=== PATIENT | male | born 1975 | race Caucasian/White ===

== ENCOUNTER 2016-12-21 13:03 | Emergency (ER) | payer OTHER ==
[2016-12-21 15:08] VITALS: BP 123/65
[2016-12-21] MEDS ORDERED: Ketorolac 60 MG/2 ML SDV IM ONE (16:50)
--- NOTE | 2016-12-21 16:51 | EDM.PDOC ---
ED HPI GENERAL MEDICAL PROBLEM - General Chief Complaint: Upper Extremity Injury/Pain Stated Complaint: RIGHT ARM PAIN Time Seen by Provider: 12/21/16 16:03 - History of Present Illness INITIAL COMMENTS - FREE TEXT/NARRATIVE: History of present illness: []Patient has chronic right arm pain and has had a blood clot in this arm in the past. He was using air hammer today and he developed numbness in his hands and pain in his arm. Review of systems: As per history of present illness and below otherwise all systems reviewed and negative. Past medical history: As per history of present illness and as reviewed below otherwise noncontributory. Surgical history: As per history of present illness and as reviewed below otherwise noncontributory. Social history: No reported history of drug or alcohol abuse. Family history: As per history of present illness and as reviewed below otherwise noncontributory. Physical exam: General: Well developed, well nourished in NAD HEENT: Atraumatic, normocephalic, pupils reactive, negative for conjunctival pallor or scleral icterus, mucous membranes moist, throat clear, neck supple, nontender, trachea midline. Lungs: Clear to auscultation, breath sounds equal bilaterally, chest nontender. Heart: S1S2, regular, negative for clicks, rubs, or JVD. Abdomen: Soft, nondistended, nontender. Negative for masses or hepatosplenomegaly. Negative for costovertebral tenderness. Pelvis: Stable nontender. Genitourinary: Deferred. Rectal: Deferred. Extremities: Atraumatic, negative for cords or calf pain. Neurovascular unremarkable. Neuro: Awake, alert, oriented. Cranial nerves II through XII unremarkable. Cerebellum unremarkable. Motor and sensory unremarkable throughout. Exam nonfocal. Diagnostics: [] Therapeutics: [] Impression: [] Plan: [] Definitive disposition and diagnosis as appropriate pending reevaluation and review of above. right shoulder Pain Score (Numeric/FACES): 8 - Related Data Allergies Allergy/AdvReac Type Severity Reaction Status Date / Time No Known Allergies Allergy Verified 12/21/16 15:03 Home Meds: Home Meds Diclofenac Sodium [Diclofenac Sodium ER] 100 mg PO DAILY PRN #20 tab.sr.24h [Rx] Past Medical History - Past Health History Medical/Surgical History: Denies Medical/Surgical History - Past Surgical History GI Surgical History: Reports: Appendectomy, Other (See Below) Other GI Surgeries/Procedures: gastric sx Social & Family History - Family History Family Medical History: Noncontributory - Tobacco Use Smoking Status *Q: Current Every Day Smoker Years of Tobacco use: 25 Packs/Tins Daily: 1 - Recreational Drug Use Recreational Drug Use: No Review of Systems - Review of Systems Review Of Systems: See Below (See history of present illness) ED EXAM, GENERAL - Physical Exam Exam: See Below Course - Vital Signs Last Recorded V/S: Last Vital Signs Temp 36.6 C 12/21/16 13:10 Pulse 58 L 12/21/16 13:10 Resp 18 12/21/16 13:10 BP 123/65 12/21/16 13:10 Pulse Ox - Orders/Labs/Meds Labs: Laboratory Tests 12/21/16 Range/Units 16:57 D-Dimer, Quantitative 0.28 (0.0-0.52) mg/LFEU Meds: Medications Discontinued Medications Generic Name Dose Route Start Last Admin Trade Name Freq PRN Reason Stop Dose Admin Ketorolac Tromethamine 60 mg 12/21/16 16:50 12/21/16 17:03 Toradol IM 12/21/16 16:51 60 mg ONETIME ONE Administration Departure - Departure Time of Disposition: 17:29 Disposition: Home, Self-Care 01 Condition: Good Clinical Impression: Neurapraxia of right upper extremity Qualifiers: Encounter type: initial encounter Qualified Code(s): S44.91XA - Injury of unspecified nerve at shoulder and upper arm level, right arm, initial encounter - Discharge Information Prescriptions: Diclofenac Sodium [Diclofenac Sodium ER] 100 mg PO DAILY PRN #20 tab.sr.24h PRN Reason: Pain Referrals: PCP,None [Primary Care Provider] - Forms: ED Department Discharge Additional Instructions: The following information is given to patients seen in the emergency department who are being discharged to home. This information is to outline your options for follow-up care. We provide all patients seen in our emergency department with a follow-up referral. The need for follow-up, as well as the timing and circumstances, are variable depending upon the specifics of your emergency department visit. If you don't have a primary care physician on staff, we will provide you with a referral. We always advise you to contact your personal physician following an emergency department visit to inform them of the circumstance of the visit and for follow-up with them and/or the need for any referrals to a consulting specialist. The emergency department will also refer you to a specialist when appropriate. This referral assures that you have the opportunity for follow-up care with a specialist. All of these measure are taken in an effort to provide you with optimal care, which includes your follow-up. Under all circumstances we always encourage you to contact your private physician who remains a resource for coordinating your care. When calling for follow-up care, please make the office aware that this follow-up is from your recent emergency room visit. If for any reason you are refused follow-up, please contact the [facility] Emergency Department at and asked to speak to the emergency department charge nurse. Ice, diclofenac for inflammation, rest right arm as much as possible. Follow-up with PMD return if symptoms worsen or change [facility] [place] [id number]
== END 2016-12-21 17:42 | disposition home or self-care (01) ==
LOC: MW.ED 13:03
DX: S44.91XA Injury of unspecified nerve at shoulder and upper arm level, right arm, initial encounter (principal); F17.210 Nicotine dependence, cigarettes, uncomplicated; Z90.49 Acquired absence of other specified parts of digestive tract; X58.XXXA Exposure to other specified factors, initial encounter
CPT/HCPCS: 36415; 85379; 96372; 99283; A4566; J1885

== ENCOUNTER 2021-02-25 12:11 | Emergency (ER) | payer BC ==
[2021-02-25] MEDS ORDERED: Ondansetron 4 MG/2 ML SDV IVPUSH ONE (13:03)
[2021-02-25] MEDS ORDERED: Sodium Chloride 0.9% 10 ML Syringe FLUSH PRN (13:03)
[2021-02-25] MEDS ORDERED: Sodium Chloride 0.9% 2.5 ML Syringe FLUSH PRN (13:03)
[2021-02-25] MEDS ORDERED: Pantoprazole 40 MG in Sodium Chloride 0.9% 10 ML IV ONE (13:03)
[2021-02-25 14:02] LABS: BLOOD UREA NITROGEN,BUN 5 mg/dL (7.0-18.0); CARBON DIOXIDE,CO2 23.8 mmol/L (21.0-32.0); CHLORIDE,CL 102 mmol/L (98-107); GLUCOSE RANDOM 106 mg/dL (74-106); LIPASE 76 U/L (73-393); SODIUM,NA 139 mmol/L (136-148)
[2021-02-25] MEDS ORDERED: Alum Hydrox/Mag Hydrox/Simeth 15 ML, Metoclopramide 5 MG, Lidocaine 2% 5 ML PO ONE ×3 (14:08)
--- NOTE | 2021-02-25 14:33 | EDM.PDOC ---
ED HPI GENERAL MEDICAL PROBLEM - General Chief Complaint: Gastrointestinal Problem Stated Complaint: STOMACH PAIN Time Seen by Provider: 02/25/21 12:15 - History of Present Illness INITIAL COMMENTS - FREE TEXT/NARRATIVE: History of present illness: [] Patient is epigastric pain. He said pain and nausea for 2 days. The patient 2 weeks ago had finished course of steroids. He had not been on steroids in the past. He also took ibuprofen today. The patient has a history of Nilam-en-Y gastrectomy with gastric bypass. That was done 5 years ago in [place] and he had complications both with surgery and then with DVT in the arm where the IV was. The patient had a difficult recovery. Now he lives in [facility]. The patient is not on a PPI or H2 jeana. The pain is constant and severe associated with nausea. At times it is worse with food at times its not. He has no black stool. The patient smokes cigarettes and does not drink alcohol. Review of systems: As per history of present illness and below otherwise all systems reviewed and negative. Past medical history: As per history of present illness and as reviewed below otherwise noncontributory. Surgical history: As per history of present illness and as reviewed below otherwise noncontributory. Social history: No reported history of drug or alcohol abuse. Family history: As per history of present illness and as reviewed below otherwise noncontributory. Physical exam: Constitutional - well developed, well-nourished and in no acute distress HEENT - normocephalic, no evidence of trauma - external nose and mouth normal - no mass in neck and no JVD - mucosae moist EYES - full EOM, PERRL, no icterus - no evidence of inflammation, injection, or drainage Respiratory - no respiratory distress, equal bilateral expansion, lungs clear to auscultation and no abnormal lung sounds Cardiovascular - Regular Rhythm with S1 and S2 appreciated and no murmur, gallop or rub. GI -tenderness isolated to the epigastrium. Abdomen soft without distension or organomegaly - normal bowel sounds - no guard or rebound Musculoskeletal no gross deformity of long bones or joints - no tenderness, swelling or edema Neurologic - Alert and oriented times four - CN II-XII grossly intact - motor sensory and coordination symmetrically normal Psychiatric - appropriate mood and affect with normal thought content Hematologic - No petechiae or purpura - mucosa appropriate color and sclera not pale - normal nail bed color and refill Integument - no rash or evidence of trauma - normal turgor Diagnostics: [] Therapeutics: [] Impression: [] Plan: [] Definitive disposition and diagnosis as appropriate pending reevaluation and review of above. Abdomen Pain Score (Numeric/FACES): 9 - Related Data Allergies Allergy/AdvReac Type Severity Reaction Status Date / Time No Known Allergies Allergy Verified 02/25/21 12:49 Home Meds: Home Meds Diclofenac Sodium [Diclofenac Sodium ER] 100 mg PO DAILY PRN #20 tab.sr.24h 12/21/16 [Rx] Omeprazole 40 mg PO DAILY 90 Days #90 capsule. 02/25/21 [Rx] Past Medical History - Past Health History Medical/Surgical History: Denies Medical/Surgical History - Past Surgical History GI Surgical History: Reports: Appendectomy, Other (See Below) Other GI Surgeries/Procedures: gastric sx Social & Family History - Family History Family Medical History: No Pertinent Family History - Tobacco Use Second Hand Smoke Exposure: No - Caffeine Use Caffeine Use: Reports: None - Recreational Drug Use Recreational Drug Use: No ED ROS GENERAL - Review of Systems Review Of Systems: Comprehensive ROS is negative, except as noted in HPI. ED EXAM, GENERAL - Physical Exam Exam: See Below Free Text/Narrative:: My physical exam is in the HPI Course - Vital Signs Last Recorded V/S: Last Vital Signs Temp 37.3 C 02/25/21 12:47 Pulse 71 02/25/21 12:47 Resp 20 02/25/21 12:47 BP 113/71 02/25/21 12:47 Pulse Ox 99 02/25/21 12:47 - Orders/Labs/Meds Orders: Active Orders 24 hr Category Date Time Status Sodium Chloride 0.9% [Saline Flush] Med 02/25/21 13:03 Active 10 ml FLUSH ASDIRECTED PRN Sodium Chloride 0.9% [Saline Flush] Med 02/25/21 13:03 Active 2.5 ml FLUSH ASDIRECTED PRN Saline Lock Insert [OM.PC] Stat Oth 02/25/21 13:03 Ordered Medication Orders Sodium Chloride (Sodium Chloride 0.9% 10 Ml Syringe) 10 ml FLUSH ASDIRECTED PRN PRN Reason: Keep Vein Open Last Admin: 02/25/21 13:35 Dose: 10 ml Documented by: [id number] Sodium Chloride (Sodium Chloride 0.9% 2.5 Ml Syringe) 2.5 ml FLUSH ASDIRECTED PRN PRN Reason: Keep Vein Open Last Admin: 02/25/21 13:35 Dose: 2.5 ml Documented by: [id number] Labs: Laboratory Tests 02/25/21 02/25/21 Range/Units 13:30 13:30 WBC 8.76 (4.0-11.0) K/uL RBC 5.20 (4.50-5.90) M/uL Hgb 14.2 (13.0-17.0) g/dL Hct 42.1 (38.0-50.0) % MCV 81.0 (80.0-98.0) fL MCH 27.3 (27.0-32.0) pg MCHC 33.7 (31.0-37.0) g/dL RDW Std Deviation 51.9 (28.0-62.0) fl RDW Coeff of Christian 18 H (11.0-15.0) % Plt Count 181 (150-400) K/uL MPV 10.10 (7.40-12.00) fL Neut % (Auto) 70.2 (48.0-80.0) % Lymph % (Auto) 17.8 (16.0-40.0) % [place] % (Auto) 9.9 (0.0-15.0) % Eos % (Auto) 1.9 (0.0-7.0) % Baso % (Auto) 0.2 (0.0-1.5) % Neut # (Auto) 6.1 H (1.4-5.7) K/uL Lymph # (Auto) 1.6 (0.6-2.4) K/uL Huntington # (Auto) 0.9 H (0.0-0.8) K/uL Eos # (Auto) 0.2 (0.0-0.7) K/uL Baso # (Auto) 0.0 (0.0-0.1) K/uL Nucleated RBC % 0.0 /100WBC Nucleated RBCs # 0 K/uL Sodium 139 (136-148) mmol/L Potassium 4.0 (3.5-5.1) mmol/L Chloride 102 (98-107) mmol/L Carbon Dioxide 23.8 (21.0-32.0) mmol/L BUN 5 L (7.0-18.0) mg/dL Creatinine 1.1 (0.8-1.3) mg/dL Est Cr Clr Drug Dosing 87.56 mL/min Estimated GFR (MDRD) > 60.0 ml/min Glucose 106 (74-106) mg/dL Calcium 8.4 L (8.5-10.1) mg/dL Total Bilirubin 0.5 (0.2-1.0) mg/dL AST 17 (15-37) IU/L ALT 21 (14-63) IU/L Alkaline Phosphatase 58 (46-116) U/L Total Protein 7.3 (6.4-8.2) g/dL Albumin 3.4 (3.4-5.0) g/dL Globulin 3.9 (2.6-4.0) g/dL Albumin/Globulin Ratio 0.9 (0.9-1.6) Lipase 76 (73-393) U/L Meds: Medications Generic Name Dose Route Start Last Admin Trade Name Jerryq PRN Reason Stop Dose Admin Sodium Chloride 10 ml 02/25/21 13:03 02/25/21 13:35 Sodium Chloride 0.9% 10 Ml Syringe FLUSH 10 ml ASDIRECTED PRN Administration Keep Vein Open Sodium Chloride 2.5 ml 02/25/21 13:03 02/25/21 13:35 Sodium Chloride 0.9% 2.5 Ml Syringe FLUSH 2.5 ml ASDIRECTED PRN Administration Keep Vein Open Discontinued Medications Generic Name Dose Route Start Last Admin Trade Name Sherri PRN Reason Stop Dose Admin Al Hydroxide/Mg Hydroxide 15 0 ml 02/25/21 14:08 02/25/21 14:33 ml/ Metoclopramide HCl 5 mg/ PO 02/25/21 14:09 1 each Lidocaine HCl 5 ml ONETIME ONE Administration Pantoprazole Sodium 40 mg/ 10 mls @ 300 mls/hr 02/25/21 13:03 02/25/21 13:40 Sodium Chloride IV 02/25/21 13:04 300 mls/hr NOW ONE Administration Ondansetron HCl 4 mg 02/25/21 13:03 02/25/21 13:31 Ondansetron 4 Mg/2 Ml Sdv IVPUSH 02/25/21 13:04 4 mg ONETIME ONE Administration Departure - Departure Time of Disposition: 14:52 Disposition: Home, Self-Care 01 Condition: Good Clinical Impression: Acute gastritis - Discharge Information Instructions: Gastritis, Adult, [id number] Referrals: Phoebe Dove, RITA [Primary Care Provider] - Forms: ED Department Discharge Additional Instructions: I checked with the surgeon Dr. Parks who said she is peripherally happy to do endoscopy on somebody after Nilam-en-Y procedure. She also said that it should be pointed out that Nilam-en-Y procedures have a high incidence of ulcer and even perforation in smokers. She suggested you stop smoking. The hospital can provide resources to help if you decide you want to do this. Start the medication advised. This is [id number] medication but I sent a prescription in case your insurance plan covers it if prescribed. It is pantoprazole and the pharmacist can recommend which proton pump inhibitor type medicine for stomach acid is most likely to be affordable for you and whether the nzqi-bhg-[id number] the prescription kind would be better. Graph you can carry Tums and antacids such as Maalox to use for any acute sudden pain. If you have acute sudden pain in its not responding to the medications you need to return so that we can make sure he did not have a perforation of an ulcer. [facility] - General Surgery [address], [address] [place] [address] The following information is given to patients seen in the emergency department who are being discharged to home. This information is to outline your options for follow-up care. We provide all patients seen in our emergency department with a follow-up referral. The need for follow-up, as well as the timing and circumstances, are variable depending upon the specifics of your emergency department visit. If you don't have a primary care physician on staff, we will provide you with a referral. We always advise you to contact your personal physician following an emergency department visit to inform them of the circumstance of the visit and f or follow-up with them and/or the need for any referrals to a consulting specialist. The emergency department will also refer you to a specialist when appropriate. This referral assures that you have the opportunity for follow-up care with a specialist. All of these measure are taken in an effort to provide you with optimal care, which includes your follow-up. Under all circumstances we always encourage you to contact your private physician who remains a resource for coordinating your care. When calling for follow-up care, please make the office aware that this follow-up is from your recent emergency room visit. If for any reason you are refused follow-up, please contact the [facility] Emergency Department at and asked to speak to the emergency department charge nurse. Sepsis Event Note (ED) - Evaluation Sepsis Screening Result: No Definite Risk - Focused Exam Vital Signs: Vital Signs Temp Pulse Resp BP Pulse Ox 02/25/21 12:47 37.3 C 71 20 113/71 99 - My Orders Last 24 Hours: My Active Orders 02/25/21 13:03 Sodium Chloride 0.9% [Saline Flush] 10 ml FLUSH ASDIRECTED PRN Sodium Chloride 0.9% [Saline Flush] 2.5 ml FLUSH ASDIRECTED PRN Saline Lock Insert [OM.PC] Stat - Assessment/Plan Last 24 Hours: My Active Orders 02/25/21 13:03 Sodium Chloride 0.9% [Saline Flush] 10 ml FLUSH ASDIRECTED PRN Sodium Chloride 0.9% [Saline Flush] 2.5 ml FLUSH ASDIRECTED PRN Saline Lock Insert [OM.PC] Stat
[2021-02-25 16:53] VITALS: BP 117/60; PULSE 82
== END 2021-02-25 15:21 | disposition home or self-care (01) ==
LOC: MW.ED 12:11
DX: K29.00 Acute gastritis without bleeding (principal); F17.210 Nicotine dependence, cigarettes, uncomplicated
CPT/HCPCS: 36415; 80053; 83690; 85025; 96374; 96375; 99284; A9270; C9113; J2405

== ENCOUNTER 2021-03-06 10:12 | Day surgery (SDC) | payer BC ==
[~2021-03-06 10:12] MED LIST: Lactated Ringers 1,000 ML IV SCH; Sodium Chloride 0.9% 10 ML SDV IV PRN; Sodium Chloride 0.9% 10 ML Syringe FLUSH PRN; Sodium Chloride 0.9% 2.5 ML Syringe FLUSH PRN
--- NOTE | 2021-03-06 11:04 | PCM.PREANE ---
Preanesthetic Assessment - Procedure Proposed Procedure: EGD, Colonoscopy - Anesthesia/Transfusion/Family Hx Anesthesia History: Prior Anesthesia Without Reaction Family History of Anesthesia Reaction: No Transfusion History: No Prior Transfusion(s) - Review of Systems General: No Symptoms Pulmonary: No Symptoms (Smokes 2 PPD, Emphesema) Cardiovascular: No Symptoms Gastrointestinal: No Symptoms (h/o gastric bypass, on omeprazole for gastritis) Neurological: No Symptoms Other: Reports: None (h/o Kidney stones) - Physical Assessment NPO Status Date: 03/05/21 NPO Status Time: 08:00 (Solids, >3Hr Liq) Vital Signs: Last Vital Signs Temp 97.5 F 03/06/21 10:42 Pulse 72 03/06/21 10:42 Resp 16 03/06/21 10:42 BP 118/56 L 03/06/21 10:42 Pulse Ox 98 03/06/21 10:42 Height: 5 ft 11 in Weight: 92.079 kg ASA Class: 3 Mental Status: Alert & Oriented x3 Airway Class: Mallampati = 2 Dentition: Reports: Dentures (Full) Thyro-Mental Finger Breadths: 3 Mouth Opening Finger Breadths: 3 ROM/Head Extension: Full Lungs: Normal Respiratory Effort, Rales (Bilateral) Cardiovascular: Regular Rate, Regular Rhythm - Allergies Allergies/Adverse Reactions: Allergies Allergy/AdvReac Type Severity Reaction Status Date / Time No Known Allergies Allergy Verified 03/01/21 11:52 - Acknowledgements Anesthesia Type Planned: General Anesthesia Pt an Appropriate Candidate for the Planned Anesthesia: Yes Alternatives and Risks of Anesthesia Discussed w Pt/Guardian: Yes Pt/Guardian Understands and Agrees with Anesthesia Plan: Yes PreAnesthesia Questionnaire - Past Health History Medical/Surgical History: Denies Medical/Surgical History HEENT History: Reports: Other (See Below) Other HEENT History: wears glasses, top and bottom dentures Cardiovascular History: Reports: Blood Clots/VTE/DVT Other Cardiovascular History: hx DVT to right arm following PICC line placement Respiratory History: Reports: None Gastrointestinal History: Reports: Other (See Below) Other Gastrointestinal History: epigastric pain Genitourinary History: Reports: None Musculoskeletal History: Reports: Fracture Other Musculoskeletal History: hx fx arms Neurological History: Reports: None Psychiatric History: Reports: None Endocrine/Metabolic History: Reports: None Hematologic History: Reports: None Immunologic History: Reports: None Oncologic (Cancer) History: Reports: None Dermatologic History: Reports: None - Past Surgical History Head Surgeries/Procedures: Reports: None HEENT Surgical History: Reports: None Cardiovascular Surgical History: Reports: None Respiratory Surgical History: Reports: None GI Surgical History: Reports: Appendectomy, Other (See Below) Other GI Surgeries/Procedures: gastric sx Male Surgical History: Reports: None Endocrine Surgical History: Reports: None Neurological Surgical History: Reports: None Musculoskeletal Surgical History: Reports: None Oncologic Surgical History: Reports: None Dermatological Surgical History: Reports: None - SUBSTANCE USE Tobacco Use Status *Q: Heavy Tobacco User Tobacco Use Within Last Twelve Months: No, Cigarettes Days Per Week of Alcohol Use: 7 Number of Drinks Per Day: 1 Total Drinks Per Week: 7 - HOME MEDS Home Medications: Home Meds Omeprazole 40 mg PO DAILY 90 Days #90 capsule. 02/25/21 [Rx] Aspirin [Adult Aspirin Regimen] 81 mg PO DAILY 03/01/21 [History] Cyanocobalamin (Vitamin B-12) [Cyanocobalamin Injection] 1 injection IM ASDIRECTED 03/01/21 [History] Gabapentin [Neurontin] 300 mg PO BEDTIME 03/01/21 [History] Multivitamin 1 tab PO DAILY 03/01/21 [History] - CURRENT (IN HOUSE) MEDS Current Meds: Current Medications Lactated Ringer's (Ringers, Lactated) 1,000 mls @ 125 mls/hr IV ASDIRECTED ROLANDO Last Admin: 03/06/21 10:47 Dose: 125 mls/hr Documented by: Sodium Chloride (Sodium Chloride 0.9% 10 Ml Syringe) 10 ml FLUSH ASDIRECTED PRN PRN Reason: Keep Vein Open Sodium Chloride (Sodium Chloride 0.9% 2.5 Ml Syringe) 2.5 ml FLUSH ASDIRECTED PRN PRN Reason: Keep Vein Open Sodium Chloride (Sodium Chloride 0.9% 10 Ml Syringe) 10 ml FLUSH ASDIRECTED PRN PRN Reason: Keep Vein Open Sodium Chloride (Sodium Chloride 0.9% 2.5 Ml Syringe) 2.5 ml FLUSH ASDIRECTED PRN PRN Reason: Keep Vein Open Sodium Chloride (Sodium Chloride 0.9% 10 Ml Sdv) 10 ml IV ASDIRECTED PRN PRN Reason: IV Use
[2021-03-06] MEDS ORDERED: Propofol 200 MG/20 ML SDV ONE ×2 (12:15→13:20)
[2021-03-06] MEDS ORDERED: Glycopyrrolate 0.2 MG/ML SDV ONE (12:16)
[2021-03-06] MEDS ORDERED: Lidocaine 2% 5 ML SDV ONE (12:16)
[2021-03-06] MEDS ORDERED: Midazolam 1 MG/ML 2 ML SDV ONE (12:16)
[2021-03-06] MEDS ORDERED: propofoL 0 ML ONE (12:27)
--- NOTE | 2021-03-06 12:49 | PCM.SN.2 ---
- Free Text/Narrative Note: Patient checked in today to undergo a diagnostic EGD and screening colonoscopy. He states that he woke up this morning with upper abdominal pain. This is similar to the pain that brought him in to the ER. His vitals are stable. His abdomen on exam is flat soft and nontender. Will proceed with diagnostic scope today to rule out a marginal ulcer. Time Documentation
--- NOTE | 2021-03-06 13:41 | PCM.POSTAN ---
POST ANESTHESIA ASSESSMENT - MENTAL STATUS Mental Status: Somnolent - VITAL SIGNS Vital Signs: Last Vital Signs Temp 97.5 F 03/06/21 10:42 Pulse 72 03/06/21 10:42 Resp 16 03/06/21 10:42 BP 118/56 L 03/06/21 10:42 Pulse Ox 98 03/06/21 10:42 - RESPIRATORY Respiratory Status: Respiratory Rate WNL, Airway Patent, O2 Saturation Stable - CARDIOVASCULAR CV Status: Pulse Rate WNL, Blood Pressure Stable - GASTROINTESTINAL GI Status: No Symptoms - PAIN Free Text/Narrative:: Resting comfortably - POST OP HYDRATION Hydration Status: Adequate & Stable
--- NOTE | 2021-03-06 13:45 | PCM.OPNOTE ---
- General Post-Op/Procedure Note Date of Surgery/Procedure: 03/06/21 Operative Procedure(s): Diagnostic EGD and screening colonoscopy Findings: Normal appearing gastric pouch with no evidence of ulceration. Normal appearing liza limb. Transverse and sigmoid colon polyps Pre Op Diagnosis: Epigastric abdominal pain, screening colonoscopy Post-Op Diagnosis: Epigastric abdominal pain, transverse colon polyp, sigmoid colon polyp Anesthesia Technique: [facility] Primary Surgeon: Graciela Parks Condition: Good
--- NOTE | 2021-03-06 13:55 | PCM48HPAN ---
Post Anesthesia Note - EVALUATION WITHIN 48HRS OF ANESTHETIC Vital Signs in Normal Range: Yes Patient Participated in Evaluation: Yes Respiratory Function Stable: Yes Airway Patent: Yes Cardiovascular Function Stable: Yes Hydration Status Stable: Yes Pain Control Satisfactory: Yes Nausea and Vomiting Control Satisfactory: Yes Mental Status Recovered: Yes Vital Signs: Last Vital Signs Temp 97.5 F 03/06/21 10:42 Pulse 65 03/06/21 13:53 Resp 18 03/06/21 13:53 BP 134/81 03/06/21 13:53 Pulse Ox 100 03/06/21 13:53 - COMMENTS/OBSERVATIONS Free Text/Narrative:: Pt doing well post-op. VSS. No apparent anesthetic complications. Dr. Dustin Espino
[2021-03-06 14:40] LABS: BLOOD UREA NITROGEN,BUN 5 mg/dL (7.0-18.0); CARBON DIOXIDE,CO2 24.5 mmol/L (21.0-32.0); CHLORIDE,CL 100 mmol/L (98-107); GLUCOSE RANDOM 107 mg/dL (74-106); POTASSIUM,K 4.4 mmol/L (3.5-5.1); SODIUM,NA 137 mmol/L (136-148)
[2021-03-06] MEDS ORDERED: Iopamidol 755 MG/ML 500 ML Multipack Bottle IVPUSH STA (14:47)
[2021-03-06] MEDS ORDERED: HYDROmorphone 1 MG/ML Syringe IVPUSH PRN (15:00)
--- NOTE | 2021-03-06 15:37 | CT ---
INDICATION: Epigastric abdomen pain. TECHNIQUE: CT abdomen and pelvis acquired with 100 cc Isovue 370 IV contrast. COMPARISON: None. FINDINGS: Lower chest: Calcified pleural plaques and pleural thickening present in the posterior left lung base. Liver: Unremarkable. Normal in size and attenuation. No suspicious masses. Gallbladder and bile ducts: Unremarkable. No stones or inflammation. No biliary dilatation. Pancreas: Unremarkable. No mass or inflammation. Spleen: Unremarkable. Normal in size. No masses. Adrenal glands: Unremarkable. No nodules. Kidneys: Unremarkable. No suspicious masses, stones, or hydronephrosis. GI tract: Gastric bypass changes are present and unremarkable. Mild gaseous distention of the transverse colon. GI tract otherwise within normal limits in caliber and appearance. No sign of mass or acute inflammation. Vasculature: Unremarkable. Mesenteric arteries are patent. Lymph nodes: No lymphadenopathy. Omentum/Peritoneum/Abdominal Wall: Unremarkable. No sign of mass or infiltration. No free air or significant free fluid. Pelvis: Unremarkable. Bones: Unremarkable for age. IMPRESSION: 1. No acute or specific findings to account for the patient`s epigastric pain. 2. 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 Please note that all CT scans at this facility use dose modulation, iterative reconstruction, and/or weight-based dosing when appropriate to reduce radiation dose to as low as reasonably achievable. Dictated by Minh Perez MD @ 03/06/2021 3:35:50 PM (Electronically Signed)
[2021-03-06 16:08] VITALS: BP 128/74; PULSE 64
--- NOTE | 2021-03-06 16:44 | OR ---
SURGEON: GRACIELA PARKS MD DATE OF PROCEDURE: 03/06/2021 PREOPERATIVE DIAGNOSIS: Epigastric abdominal pain, screening colonoscopy. POSTOPERATIVE DIAGNOSES: 1. Epigastric abdominal pain. 2. Transverse colon polyp. 3. Sigmoid colon polyp. PROCEDURE PERFORMED: Diagnostic esophagogastroduodenoscopy and screening colonoscopy with polypectomy. PRIMARY SURGEON: Graciela Parks MD ANESTHESIA: MAC. INSTRUMENT USED: Olympus endoscope and colonoscope. EXTENT OF THE EXAM: 60 cm down the Nilam limb, to the cecum. PREPARATION: Good. LIMITATIONS: None. INDICATIONS FOR EXAMINATION: The patient is a 45-year-old male with a history of a Nilam-en-Y gastric bypass. He presented to the emergency room with acute epigastric abdominal pain. His abdominal exam was benign. Vital signs were stable and labs were normal, so he was sent home. The patient was given a PPI to take. He has been taking this, but still has intermittent epigastric abdominal pain. He has never had a colonoscopy, but is a smoker. He recently finished a long course of oral steroids. The decision was made to proceed to the endoscopy suite to perform a diagnostic EGD and a screening colonoscopy. When the patient arrived today at the surgery center, he was having epigastric abdominal pain. His physical exam was benign and his vital signs were stable. Given his history, I was concerned for marginal ulcer, so the decision was made to proceed with a diagnostic EGD and colonoscopy. I discussed the procedures to the patient as well as the expected perioperative course and the risks. He verbalized understanding and wishes to proceed. PROCEDURE IN DETAIL: The patient was brought to the endoscopy suite and placed in a left lateral decubitus position. A time-out was completed verifying the patient's name, age, date of , allergies, and procedure to be performed. A bite block was placed in the patient's mouth. Monitored anesthesia care was induced and continuous oxygen was provided via face mask throughout the procedure. After adequate sedation was achieved, a well-lubricated endoscope was placed in the patient's mouth and advanced under direct visualization to the Nilam limb. I was able to transverse the gastric pouch and go directly into the Nilam limb. I was able to go as far as 60 cm from the teeth. The Nilam limb itself appeared healthy and pink with no evidence of inflammation or ulceration. The scope was then fully withdrawn while examining the anatomy of the upper GI tract. I closely inspected the staple line. There was no evidence of a marginal ulcer. The gastric pouch was small and intact. There was no evidence of inflammation along the gastric mucosa. The Z-line appeared normal as well. There was no evidence of distal esophagitis. A biopsy was taken within the gastric pouch and sent to pathology labeled as stomach. A biopsy was taken just above the Z-line and sent to pathology labeled as esophagus. The remainder of the esophagus was normal. The scope was removed and this portion of procedure terminated. A digital rectal exam was performed. This exam was within normal limits. A well- lubricated colonoscope was inserted in the rectum and advanced under direct visualization to the level of the cecum. The cecum was identified by both visual and anatomic landmarks. A photograph was taken of the cecal cap. However, due to looping of the scope more proximally, I was unable to retroflex the scope within the cecum. The scope was then fully withdrawn while examining the color, texture, anatomy, and integrity of mucosa from the cecum to the anal canal. The patient was noted to have 2 flat sessile polyps, 1 in the mid transverse colon and 1 in the sigmoid colon. These were both removed in piecemeal fashion using a cold biopsy forceps. The scope was then brought into the rectum and retroflexed to allow visualization of the anal canal opening. This appeared normal and photograph was taken. The scope was then straightened out and fully withdrawn. The cecum to anus time was 23 minutes. The patient tolerated the procedure well and was transferred to the PACU in stable condition. ENDOSCOPIC DIAGNOSES: 1. Epigastric abdominal pain. 2. Transverse colon polyp. 3. Sigmoid colon polyp. RECOMMENDATIONS: CBC and CMP were normal post operatively. A CT scan was performed which showed no evidence of acute disease. The patient was given pain medication with some relief in his discomfort. He was instructed to eat small meals and to take the prescribed pain medication at home. If the pain worsens he should go to the ER. Will follow up in clinic with his biopsy results and discuss the next steps in treatment. SHAWN JARAMILLO /[id number] NIYA
== END 2021-03-06 16:05 | disposition home or self-care (01) ==
LOC: MW.SDS 10:12
PROVIDERS: ATTEND Surgery
DX: D12.3 Benign neoplasm of transverse colon (principal); D12.5 Benign neoplasm of sigmoid colon; K20.90 Esophagitis, unspecified without bleeding; E53.8 Deficiency of other specified B group vitamins; F17.210 Nicotine dependence, cigarettes, uncomplicated; Z79.899 Other long term (current) drug therapy; Z79.82 Long term (current) use of aspirin; Z98.84 Bariatric surgery status; Z98.890 Other specified postprocedural states; Z90.49 Acquired absence of other specified parts of digestive tract
CPT/HCPCS: 36415; 43239; 45380; 74177; 80053; 85027; 88305; 88342; J1170; J2250; J2704; J3490; J7120; Q9967; 00813

== ENCOUNTER 2022-04-12 06:39 | Day surgery (SDC) | payer BC ==
[2022-04-12] MEDS ORDERED: Lactated Ringers 1,000 ML IV SCH (07:00)
[2022-04-12] MEDS ORDERED: Propofol 200 MG/20 ML SDV ONE (07:40)
[2022-04-12] MEDS ORDERED: Midazolam 1 MG/ML 2 ML SDV ONE (07:40)
[2022-04-12 08:40] VITALS: BP 117/70; PULSE 75
== END 2022-04-12 09:00 | disposition home or self-care (01) ==
LOC: MW.SDS 06:39
PROVIDERS: ATTEND Surgery
DX: D12.8 Benign neoplasm of rectum (principal); D12.2 Benign neoplasm of ascending colon; K21.9 Gastro-esophageal reflux disease without esophagitis; F17.210 Nicotine dependence, cigarettes, uncomplicated; Z90.49 Acquired absence of other specified parts of digestive tract; Z98.890 Other specified postprocedural states; Z79.899 Other long term (current) drug therapy; Z79.82 Long term (current) use of aspirin
CPT/HCPCS: 43239; J2250; J2704; J7120; 00731